=== PATIENT | male | born 1985 | race Caucasian/White ===

== ENCOUNTER 2024-06-24 11:50 | Emergency (ER) | payer SELFPAY ==
--- NOTE | ~2024-06-24 | XR_ITS ---
EXAMINATION: XR chest 2V DATE: 06/24/2024 12:22 INDICATION: Cough and weakness. TECHNIQUE: Frontal and lateral views of the chest were obtained. COMPARISON: Chest CT 07/08/2018 FINDINGS: There is no pneumonia, pleural effusion, or pneumothorax. The heart size is normal. IMPRESSION: 1. No acute cardiopulmonary disease. Reviewed, dictated and finalized at location A. 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
[2024-06-24 11:52] VITALS: BP 145/80; PULSE 86; RESP 18; TEMP 36.3; O2SAT 100
[2024-06-24 12:40] LABS: Influenza A QL RT-PCR Positive (Negative); Influenza B QL RT-PCR Negative (Negative); RSV RNA, RT-PCR Negative (Negative); SARS-CoV-2 RNA PCR Negative (Negative)
--- NOTE | 2024-06-24 13:11 | ED_ITS ---
HPI - General Adult General Chief complaint: Upper Respiratory Infection Stated complaint: cough, fatigue Time Seen by Provider: 06/24/24 12:00 History of Present Illness HPI narrative: 38-year-old male present to the emergency department for evaluation for worsening cough and congestion. Patient states he is a smoker and does have a baseline smoker's cough but states that he has had increased cough and congestion since Wednesday night. 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 Related Data Allergies Allergy/AdvReac Type Severity Reaction Status Date / Time Sulfa (Sulfonamide Allergy Intermediate rash Verified 06/24/24 11:55 Antibiotics) Review of Systems Review of Systems: All systems reviewed & are unremarkable except as noted in HPI and below Exam Narrative: APPEARANCE: Well appearing, no pain, no distress, well-nourished. HEAD: normocephalic, atraumatic. EYES: PERRLA/EOMI, conjunctivae clear. NOSE: Normal no drainage EARS:TMS clear with good light reflex. THROAT: Pharynx clear, no exudate. NECK: Supple. No adenopathy, no masses. RESPIRATORY: Airway patent, respirations nonlabored. Clear to auscultation bilaterally, no rales, rhonchi, wheezing. CARDIOVASCULAR: Regular rate and rhythm without murmurs rubs or gallops. ABDOMINAL: Soft, nontender, nondistended, normal bowel sounds MUSCULOSKELETAL: Moves all extremities. Strength/ROM intact, No edema, No calf tenderness. NEURO: Alert. Cranial nerves II through XII intact. Grossly intact SKIN: Warm, dry. Normal Color Course Vital Signs Vital signs: Vital Signs Temperature 97.3 F L 06/24/24 11:52 Pulse Rate 86 06/24/24 11:52 Respiratory Rate 18 06/24/24 11:52 Blood Pressure 145/80 H 06/24/24 11:52 Pulse Oximetry 100 06/24/24 11:52 Oxygen Delivery Room Air 06/24/24 11:52 Temperature 97.3 F L 06/24/24 11:52 Pulse Rate 86 06/24/24 11:52 Respiratory Rate 18 06/24/24 11:52 Blood Pressure 145/80 H 06/24/24 11:52 Pulse Oximetry 100 06/24/24 11:52 Oxygen Delivery Room Air 06/24/24 12:08 Medical Decision Making [facility] Narrative Medical decision making narrative: 38-year-old male presenting emergency department for evaluation worsening shortness of breath. Patient does have multiple sick contacts at home. Patient did pass positive for influenza a was negative for influenza B RSV and for COVID. Chest x-ray showed no acute cardiopulmonary mallet a. Patient does have a blood pressure 145/80, heart rate of 86 and respiratory rate of 18 saturating 100% on room air. Patient's symptoms are consistent with influenza A. Low concern for pneumonia with a negative chest x-ray and low concern for pulmonary embolism. Patient was provided albuterol inhaler, Tessalon Perles and patient was advised to take Tylenol and ibuprofen for pain control. Differential Diagnosis Differential Diagnosis: COVID, RSV, influenza Vital Signs Vital Signs: Vital Signs Temperature 97.3 F L 06/24/24 11:52 Pulse Rate 86 06/24/24 11:52 Respiratory Rate 18 06/24/24 11:52 Blood Pressure 145/80 H 06/24/24 11:52 Pulse Oximetry 100 06/24/24 11:52 Oxygen Delivery Room Air 06/24/24 11:52 Temperature 97.3 F L 06/24/24 11:52 Pulse Rate 86 06/24/24 11:52 Respiratory Rate 18 06/24/24 11:52 Blood Pressure 145/80 H 06/24/24 11:52 Pulse Oximetry 100 06/24/24 11:52 Oxygen Delivery Room Air 06/24/24 12:08 Lab Data Labs: Lab Results 06/24/24 Range/Units 11:55 Influenza A (RT-PCR) Positive A (Negative) Influenza B (RT-PCR) Negative (Negative) RSV (RT-PCR) Negative (Negative) SARS-CoV-2 RNA (RT-PCR) Negative (Negative) Imaging Data Radiologist's impression: Impressions Chest X-Ray 06/24/24 12:26 IMPRESSION: 1. No acute cardiopulmonary disease. Discharge Plan Discharge Clinical Impression: Influenza Patient Disposition: Home, Self-Care Condition: Stable Instructions: Antibiotic Form, Influenza (ED) Additional Instructions: You did test positive for influenza A. Tylenol and ibuprofen for fever and for body aches. Drink plenty of fluids. Albuterol inhaler for shortness of breath. Tessalon Perles for cough. If you have any worsening symptoms then please call or return to the emergency department. Patient Language: Vietnamese Prescriptions: New benzonatate 100 mg capsule 100 mg PO TID PRN (Reason: cough) Qty: 14 0RF albuterol sulfate 90 mcg/actuation HFA aerosol inhaler 1 puff inhalation QID Qty: 6.7 0RF Follow-up/Referrals: PHYSICIAN,BOTTOMING ROOM INSPECTOR [Primary Care Provider] -
== END 2024-06-24 13:19 | disposition home or self-care (01) ==
PROVIDERS: Student in an Organized Health Care Education/Training Program; Emergency Provider Emergency Medicine
DX: J10.1 Influenza due to other identified influenza virus with other respiratory manifestations (principal); Z20.822 Contact with and (suspected) exposure to COVID-19; F17.200 Nicotine dependence, unspecified, uncomplicated
CPT/HCPCS: 71046; 87637; 99283